=== PATIENT | female | born 1950 | race Native Hawaiian/Other Pacific Islander ===

== ENCOUNTER 2019-04-28 17:45 | Emergency (ER) | payer OTHER ==
[~2019-04-28] VITALS: Ht 165.1 cm; Wt 111.1 kg
[2019-04-28 18:04] LABS: PLATELET COUNT 244 K/uL (152-353)
[2019-04-28 18:07] LABS: POTASSIUM 3.3 mmol/L (3.6-5.2)
[2019-04-28 18:50] VITALS: BP 156/92; TEMP 98.1
[2019-04-28] MEDS ORDERED: LIPITOR40 MG PO (19:41)
[2019-04-28] MEDS ORDERED: ASPIR-8181 MG PO (19:41)
[2019-04-28] MEDS ORDERED: HALO5TAB10 PO (19:42)
[2019-04-28] MEDS ORDERED: MULTIVITAMI1 PO (19:42)
[2019-04-28] MEDS ORDERED: HYDROCODONE BIT1 TA2 PO (19:43)
[2019-04-28] MEDS ORDERED: FURO20TA67 PO (19:44)
[2019-04-28] MEDS ORDERED: AMLODIPINE BESYLATE PO (19:45)
[2019-04-28] MEDS ORDERED: LEVO0.0723 PO (19:45)
[2019-04-28] MEDS ORDERED: MAGN400T4 PO (19:45)
[2019-04-28] MEDS ORDERED: KLOR-CON SPRIN10 MEQ PO (19:46)
[2019-04-28] MEDS ORDERED: VALSARTAN40 MG PO ×2 (19:46)
[2019-04-28] MEDS ORDERED: COZAAR25 MG PO (19:47)
== END 2019-04-28 18:50 | disposition other institution (70) ==
LOC: ED 17:45
PROVIDERS: Student in an Organized Health Care Education/Training Program
DX: F03.91 Unspecified dementia, unspecified severity, with behavioral disturbance (principal); Z04.6 Encounter for general psychiatric examination, requested by authority
CPT/HCPCS: 36415; 80053; 81000; 85027; 99285